=== PATIENT | female | born 1965 | race Hispanic/Latino ===

== ENCOUNTER 2018-08-24 20:55 | Emergency (ER) | payer SELFPAY ==
[~2018-08-24] VITALS: Ht 157.5 cm; Wt 57.2 kg
[2018-08-24] MEDS ORDERED: IBUPROFEN 600 MG TAB PO STA (21:44)
--- NOTE | 2018-08-24 23:15 | Diagnostic Imaging Report ---
Cervical Spine, 8 radiographs HISTORY: Pain COMPARISON: None. FINDINGS: Limited sensitivity for detection of subtle fractures and ligamentous abnormalities. On the lateral view, the cervical spine is visualized from the skull base to T1. The alignment is normal. No acute displaced fracture involving the visualized cervical spine. Vertebral body heights are maintained. No significant disc space narrowing. IMPRESSION: No acute radiographic abnormality. Signed by: Dr. Júnior Brown MD on 08/24/2018 11:12 PM
--- NOTE | 2018-08-24 23:19 | Diagnostic Imaging Report ---
EXAMINATION: RIBS UNILAT W/CXR INDICATION: ^RIGHT SIDED RIB PAIN ^[id number] ^[id number] COMPARISON: None FINDINGS: TUBES and LINES: None. LUNGS: Lungs are well inflated. Lungs are clear. There is no evidence of pneumonia or pulmonary edema. PLEURA: No pleural effusion or pneumothorax. HEART AND MEDIASTINUM: The cardiomediastinal silhouette is unremarkable. BONES AND SOFT TISSUES: No acute osseous lesion. Soft tissues are unremarkable. UPPER ABDOMEN: No free air under the diaphragm. Right upper quadrant surgical clips. IMPRESSION: No acute thoracic abnormality. No evidence of displaced right-sided rib fracture. Signed by: Dr. Júnior Brown MD on 08/24/2018 11:15 PM
== END 2018-08-24 23:47 | disposition home or self-care (01) ==
LOC: ER 20:55
DX: M54.2 Cervicalgia (principal); S16.1XXA Strain of muscle, fascia and tendon at neck level, initial encounter; S39.012A Strain of muscle, fascia and tendon of lower back, initial encounter; R07.89 Other chest pain; V43.52XA Car driver injured in collision with other type car in traffic accident, initial encounter; Y92.488 Other paved roadways as the place of occurrence of the external cause
CPT/HCPCS: 71101; 72050; 99283